=== PATIENT | male | born 1995 | race Native Hawaiian/Other Pacific Islander ===

== ENCOUNTER 2017-04-06 10:45 | Emergency (ER) | payer BC ==
[~2017-04-06] VITALS: Ht 170.2 cm; Wt 113.4 kg
[2017-04-06 13:02] VITALS: BP 141/80; TEMP 99.7
== END 2017-04-06 13:03 | disposition home or self-care (01) ==
LOC: ED 10:45
DX: T78.1XXA Other adverse food reactions, not elsewhere classified, initial encounter (principal); L50.9 Urticaria, unspecified; R21 Rash and other nonspecific skin eruption
CPT/HCPCS: 96374; 96375; 96376; 99284; J1200; J1720